=== PATIENT | male | born 1930 | race Caucasian/White ===

== ENCOUNTER → 2017-05-21 | Outpatient (CLI) | payer MEDICARE ==
[~2017-05-21] MED LIST: AMIODARONE PO; ASPIRIN81 M1 PO; ASPIRIN81 MG PO; ASPIRINEC PO; BACTRIM DS TABL1 TA1 PO; COMBIVENT14.7 GM INH; COUMADIN PO; COUMADIN5 MG PO; DAILY MULTIVITA1 TA1 PO; FEOSOL; FEOSOL PO; FLOMAX0.4 M1 PO; FLOMAX0.4 MG PO; FUROSEMIDE40 MG PO; IRON PO; IRON SUPPLEMENT1 TAB PO; K-DUR20 ME1 PO; K-LOR20 MEQ PO; KLOR-CON PO; LASIX PO; LASIX20 MG PO; LEVOTHROID50 MCG; LEVOTHROID50 MCG PO; LEVOTHYROXINE50 MCG PO; LORTAB 5/500 TA1 TA1 PO; METOPROLOL TAR25 MG PO; METOPROLOL TART25 MG PO; MULTI-DAY VITAM1 TAB PO; MULTI-VITAMIN1 EAC1 PO; MULTI-VITAMIN1 TAB PO; PYRIDIUM PO; RYTHMOL150 MG PO; SPIRIVA18 MCG INH; SYNTHROID0.05 MG PO; VIT B6 PO; VITAMIN B-6; VITAMIN B-650 MG PO; VITAMIN B650 M2 PO; ZOCOR PO; ZOCOR20 MG PO
== END | disposition home or self-care (01) ==
LOC: SLAB 08:22
DX: E03.9 Hypothyroidism, unspecified (principal)
CPT/HCPCS: 36415; 84443